=== PATIENT | female | born 1945 | race Caucasian/White ===

== ENCOUNTER 2020-09-19 10:15 | Outpatient (CLI) | payer MEDICARE, BC | END 2020-09-19 10:16 | disposition home or self-care (01) | LOC: CSHMAMMO 10:15 | PROVIDERS: ATTEND Internal Medicine | DX: Z12.31 Encounter for screening mammogram for malignant neoplasm of breast (principal) | CPT/HCPCS: 77063; 77067 ==

== ENCOUNTER 2022-07-14 12:11 | Outpatient (CLI) | payer MEDICARE, BC | END 2022-07-14 12:12 | disposition home or self-care (01) | LOC: CSHMAMMO 12:11 | PROVIDERS: ATTEND Internal Medicine | DX: Z12.31 Encounter for screening mammogram for malignant neoplasm of breast (principal); N64.89 Other specified disorders of breast; Z91.89 Other specified personal risk factors, not elsewhere classified | CPT/HCPCS: 77063; 77067 ==

== ENCOUNTER 2024-04-06 10:10 | Emergency (ER) | payer BC, MEDICARE ==
[2024-04-06] MEDS ORDERED: Acetaminophen 325 MG TAB ONE (12:22)
[2024-04-06 12:33] LABS: INR-International Normal Ratio 1.1; PTT 26.1 sec (22.0-33.0); Prothrombin Time 11.7 sec (9.5-12.1)
[2024-04-06 12:37] LABS: ALT (SGPT) 21 U/L (8-55); AST (SGOT) 22 U/L (5-34); Albumin 3.6 g/dL (3.4-4.8); Alkaline Phosphatase 56 U/L (40-110); Anion Gap 11 mmol/L (10-20); BUN (Urea Nitrogen) 21 mg/dL (9.8-20.1); Bilirubin, Total 0.3 mg/dL (0.2-1.2); CK (CPK) 66 U/L (29-168); Calc. Creatinine Clearance 0 mL/min (70-130); Calcium 9.5 mg/dL (7.8-10.44); Carbon Dioxide 24 mmol/L (23-31); Chloride 106 mmol/L (98-107); Estimated GFR 79; Globulin 3.4 g/dL (2.4-3.5); Glucose 107 mg/dL (83-110); Potassium 4.1 mmol/L (3.5-5.1); Sodium 137 mmol/L (136-145)
== END 2024-04-06 13:16 | disposition short-term general hospital (02) ==
LOC: CSHERS 10:10
DX: S82.144A Nondisplaced bicondylar fracture of right tibia, initial encounter for closed fracture (principal); I10 Essential (primary) hypertension; W18.30XA Fall on same level, unspecified, initial encounter
CPT/HCPCS: 36415; 72170; 80053; 82550; 85610; 85730; 86850; 86900; 86901; 99284

== ENCOUNTER 2024-04-24 14:54 | Emergency (ER) | payer MEDICARE | END 2024-04-24 18:00 | disposition home or self-care (01) | LOC: CSHERS 14:54 | DX: M79.89 Other specified soft tissue disorders (principal); I10 Essential (primary) hypertension ==